=== PATIENT | female | born 1980 | race Caucasian/White ===

== ENCOUNTER 2021-08-15 19:33 | Emergency (ER) | payer SELFPAY ==
[~2021-08-15] VITALS: Ht 167.6 cm; Wt 72.9 kg
[2021-08-15 20:54] LABS: HEMATOCRIT 40.4 % (36.0-47.0); HEMOGLOBIN 13.9 g/dL (12.0-15.5); RED BLOOD COUNT 4.26 x10^6/uL (3.50-5.40); RED CELL DISTRIBUTION WIDTH 12.4 % (11.5-14.5); WHITE BLOOD COUNT 9.5 x10^3/uL (4.0-11.0)
[2021-08-15 21:08] LABS: CALCIUM 8.7 mg/dL (8.5-10.1); CREATININE 0.9 mg/dL (0.6-1.0); POTASSIUM 3.6 mmol/L (3.5-5.1)
[2021-08-15 21:10] LABS: ALBUMIN 4.3 g/dL (3.4-5.0); ALBUMIN/GLOBULIN RATIO 1.1 (1.0-1.7); TOTAL BILIRUBIN 0.4 mg/dL (0.2-1.0); TOTAL PROTEIN 8.1 g/dL (6.4-8.2)
[2021-08-15 21:56] LABS: BACTERIA,URINE MANY /HPF (0-FEW); BILIRUBIN,URINE NEG (NEG); CLARITY,URINE CLEAR; COLOR,URINE YELLOW; GLUCOSE,URINE NEG (NEG); NITRITE,URINE NEG (NEG); SQUAMOUS EPITHELIAL CELL,UR MANY /LPF; UROBILINOGEN,URINE 0.2 mg/dL (0.2 mg/dL)
[2021-08-15 22:08] LABS: U PREG PATIENT NEGATIVE (NEG)
[2021-08-15] MEDS ORDERED: IOHEXOL 240 MG/ML 50ML VIAL. ONE (23:25)
[2021-08-15] MEDS ORDERED: CONTRAST GIVEN. MC PRN (23:30)
[2021-08-15] MEDS ORDERED: IOHEXOL 300 MG/ML 75 ML VIAL. IV ONE (23:45)
[2021-08-15] MEDS ORDERED: KETOROLAC 30 MG/ML VIAL. IVP ONE (23:45)
--- NOTE | 2021-08-15 23:55 | RAD ---
XR ABDOMEN COMP ACUTE History: Reason: RUQ ABDOMINAL PAIN / Spl. Instructions: / History: Technique: Upright and supine views the abdomen. Comparison: None. Findings: No consolidation or pleural effusion. No pneumothorax. Normal heart size. No pneumoperitoneum. Minima l small bowel gas. Air and stool throughout the colon. Lower lumbar spondylosis Impression: 1. Nonobstructed bowel gas pattern. Electronically signed by: Mark Dawn DO (08/15/2021 11:53 PM) [facility]
--- NOTE | 2021-08-16 01:07 | RAD ---
CT ABDOMEN+PELVIS W History: Reason: RUQ ABDOMINAL PAIN Omni 300 75cc / Spl. Instructions: / History: Technique: After the administration of intravenous contrast, CT imaging was performed of the abdomen and pelvis. Multiplanar images are reviewed. Exposure: One or more of the following individualized dose reduction techniques were utilized for thi s examination: 1. Automated exposure control 2. Adjustment of the mA and/or kV according to patient size 3. Use of iterative reconstruction technique. Comparison: None Findings: Lower chest: No consolidation or pleural effusion. Abdomen and pelvis: The liver, spleen, adrenal glands, pancreas and gallbladder are unremarkable. No biliary ductal dilatation. Patent portal vein. No renal calculus. No hydronephrosis. Normal appearanc e of the urinary bladder. Normal appendix. No evidence of bowel obstruction. Oral contrast opacifies to the level of the colon. No pathologic lymphadenopathy. No ascites. Bones: Multilevel lumbar spondylosis most prominent L5-S1. Impression: 1. No acute abdominal or pelvic pathology. Electronically signed by: Mark Dawn DO (08/16/2021 1:04 AM) [facility]
--- NOTE | 2021-08-16 02:05 | PHYS DOC ---
Past History Past Surgical History: Tubal ligation Additional Past Surgical Histo: Bladder Alcohol Use: None General Adult EDM: Chief Complaint: ABDOMINAL PAIN HPI: HPI: :". I ve had this pain for past couple days..," Patient is a 40 year old female who presents with Rt. chest wall and Rt. upper quadrant pain.. Did get COVID vaccination x 2. No flu vaccination.,No hx trauma. No hx prior cardiac. No Hx. gall bladder, + family hx.gallbladder. Pt in.[place] 5# Dyspnea. Review of Systems: Review of Systems: Constitutional: Denies fever or chills Eyes: Denies change in visual acuity HENT: Denies nasal congestion or sore throat Respiratory: dyspnea Cardiovascular: Rt. lower chest wall pain GI: epi gastric abdominal pain, nausea,. Denies vomiting, bloody stools or diarrhea : Denies dysuria Musculoskeletal: Denies back pain or joint pain Integument: Denies rash Neurologic: Denies headache, focal weakness or sensory changes Endocrine: Denies polyuria or polydipsia Lymphatic: Denies swollen glands Psychiatric: Denies depression or anxiety Family History: Family History: Gall bladder Current Medications: Current Meds: Current Medications Medications (Trade) Dose Ordered Sig/Terry Start Time Stop Time Status Last Admin Dose Admin Info (Do NOT chart on this entry -- for MONITORING) 1 each PRN DAILY PRN 08/15/21 23:30 08/17/21 23:29 Iohexol (Omnipaque 240 Mg/ml) 50 ml STK-MED ONCE 08/15/21 23:25 08/15/21 23:26 DC Iohexol (Omnipaque 300 Mg/ml) 75 ml 1X ONCE 08/15/21 23:45 08/15/21 23:46 DC 08/16/21 00:30 75 ML Ketorolac Tromethamine (Toradol 30mg Vial) 30 mg 1X ONCE 08/15/21 23:45 08/15/21 23:46 DC 08/15/21 23:29 30 MG Allergies: Allergies: Allergies Coded Allergies Type Severity Reaction Last Updated Verified No Known Drug Allergies 08/15/21 No Physical Exam: PE: Constitutional: moderate acute distress, non-toxic appearance. [] HENT: Normocephalic, atraumatic, bilateral external ears normal, oropharynx moist, no oral exudates, nose normal. [] Eyes: PERRLA, EOMI, conjunctiva normal, no discharge. [] Neck: Normal range of motion, no tenderness, supple, no stridor. [] Cardiovascular:Heart rate regular rhythm, no murmur [] Lungs & Thorax: Bilateral breath sounds = at apex. few wheezes on auscultation [] Abdomen: Bowel sounds normal, soft, Rt upper quadran tenderness, no masses, no pulsatile masses. [] Skin: Warm, dry, no erythema, no rash. [] Back: No tenderness, no CVA tenderness. [] Extremities: No tenderness, no cyanosis, no clubbing, ROM intact, no edema. [] No cording Neurologic: Alert and oriented X 3, normal motor function, normal sensory function, no focal deficits noted. [] Psychologic: Affect anxious, judgement normal, mood normal. [] Current Patient Data: Labs: Laboratory Tests Test 08/15/21 20:27 08/15/21 20:34 Urine Test Negative (NEG) White Blood Count 9.5 x10^3/uL (4.0-11.0) Red Blood Count 4.26 x10^6/uL (3.50-5.40) Hemoglobin 13.9 g/dL (12.0-15.5) Hematocrit 40.4 % (36.0-47.0) Mean Corpuscular Volume 95 fL (79-100) Mean Corpuscular Hemoglobin 33 pg (25-35) Mean Corpuscular Hemoglobin Concent 34 g/dL (31-37) Red Cell Distribution Width 12.4 % (11.5-14.5) Platelet Count 282 x10^3/uL (140-400) Urine Collection Type Unknown Urine Color Yellow Urine Clarity Clear Urine pH 5.5 Urine Specific [place] >=1.030 Urine Protein Neg (NEG-TRACE) Urine Glucose (UA) Neg mg/dL (NEG) Urine Ketones (Stick) Neg mg/dL (NEG) Urine Blood Neg (NEG) Urine Nitrite Neg (NEG) Urine Bilirubin Neg (NEG) Urine Urobilinogen Dipstick 0.2 mg/dL (0.2 mg/dL) Urine Leukocyte Esterase Neg (NEG) Urine RBC 1-2 /HPF (0-2) Urine WBC 5-10 /HPF (0-4) Urine Squamous Epithelial Cells Many /LPF Urine Transitional Epithelial Cells /LPF Urine Bacteria Many /HPF (0-FEW) Urine Mucus Marked /LPF Sodium Level 133 mmol/L (136-145) L Potassium Level 3.6 mmol/L (3.5-5.1) Chloride Level 97 mmol/L (98-107) L Carbon Dioxide Level 24 mmol/L (21-32) Anion Gap 12 (6-14) Blood Urea Nitrogen 12 mg/dL (7-20) Creatinine 0.9 mg/dL (0.6-1.0) Estimated GFR (Cockcroft-Gault) 69.0 BUN/Creatinine Ratio 13 (6-20) Glucose Level 100 mg/dL (70-99) H Calcium Level 8.7 mg/dL (8.5-10.1) Total Bilirubin 0.4 mg/dL (0.2-1.0) Aspartate Amino Transferase (AST) 19 U/L (15-37) Alanine Aminotransferase (ALT) 24 U/L (14-59) Alkaline Phosphatase 75 U/L (46-116) Total Protein 8.1 g/dL (6.4-8.2) Albumin 4.3 g/dL (3.4-5.0) Albumin/Globulin Ratio 1.1 (1.0-1.7) Amylase Level 44 U/L (25-115) Vital Signs: Vital Signs Date Time Temp Pulse Resp B/P (MAP) Pulse Ox O2 Delivery O2 Flow Rate FiO2 08/15/21 20:39 98.1 72 16 136/92 (107) 98 Room Air EKG: EKG: Lobby EKG=Sinus 74, L. axis , no [id number] Hrs. EKG # 2 = Sinus Panchito 48,no acute 0305 Hrs. [] Radiology/Procedures: Radiology/Procedures: [address] [address] IMAGING REPORT Signed PATIENT: ASHLEY VOGEL ACCOUNT: [id number] : 1980 LOCATION: ER AGE: 40 SEX: F EXAM STATUS: REG ER ORD. PHYSICIAN: LETHA BROWN MD REASON: RUQ ABDOMINAL PAIN Omni 300 75cc PROCEDURE: CT ABD PELV W/ORAL&IV CONTRAST CT ABDOMEN+PELVIS W History: Reason: RUQ ABDOMINAL PAIN Omni 300 75cc / Spl. Instructions: / History: Technique: After the administration of intravenous contrast, CT imaging was performed of the abdomen and pelvis. Multiplanar images are reviewed. Exposure: One or more of the following individualized dose reduction techniques were utilized for this examination: 1. Automated exposure control 2. Adjustment of the mA and/or kV according to patient size 3. Use of iterative reconstruction technique. Comparison: None Findings: Lower chest: No consolidation or pleural effusion. Abdomen and pelvis: The liver, spleen, adrenal glands, pancreas and gallbladder are unremarkable. No biliary ductal dilatation. Patent portal vein. No renal calculus. No hydronephrosis. Normal appearance of the urinary bladder. Normal appendix. No evidence of bowel obstruction. Oral contrast opacifies to the level of the colon. No pathologic lymphadenopathy. No ascites. Bones: Multilevel lumbar spondylosis most prominent L5-S1. Impression: 1. No acute abdominal or pelvic pathology. Electronically signed by: Mark Dawn DO (08/16/2021 1:04 AM) [facility] DICTATED AND SIGNED BY: MARK DAWN DO DATE: 08/16/21 0100 CC: LETHA BROWN MD; EMERGENCY,DEPARTMENT; PCP,NO ~MTH0 0 [][place] [address] IMAGING REPORT Signed PATIENT: ASHLEY VOGEL ACCOUNT: [id number] : 1980 LOCATION: ER AGE: 40 SEX: F EXAM STATUS: REG ER ORD. PHYSICIAN: LETHA BROWN MD REASON: RUQ ABDOMINAL PAIN PROCEDURE: ACUTE ABDOMEN SERIES XR ABDOMEN COMP ACUTE History: Reason: RUQ ABDOMINAL PAIN / Spl. Instructions: / History: Technique: Upright and supine views the abdomen. Comparison: None. Findings: No consolidation or pleural effusion. No pneumothorax. Normal heart size. No pneumoperitoneum. Minimal small bowel gas. Air and stool throughout the colon. Lower lumbar spondylosis Impression: 1. Nonobstructed bowel gas pattern. Electronically signed by: Mark Dawn DO (08/15/2021 11:53 PM) [facility] DICTATED AND SIGNED BY: MARK DAWN DO DATE: 08/15/21 2352 CC: LETHA BROWN MD; EMERGENCY,DEPARTMENT; PCP,NO ~MTH0 0 Heart Score: C/O Chest Pain: Yes HEART Score for Chest Pain: HEART Score for Chest Pain Response (Comments) Value History Slighlty/Non-Suspicious 0 ECG Normal 0 Age < 45 0 Risk Factors 1 or 2 Risk Factors 1 Troponin < Normal Limit 0 Total 1 Risk Factors: Risk Factors: DM, Current or recent (<one month) smoker, HTN, HLP, family history of CAD, obesity. Risk Scores: Score 0 - 3: 2.5% MACE over next 6 weeks - Discharge Home Score 4 - 6: 20.3% MACE over next 6 weeks - Admit for Clinical Observation Score 7 - 10: 72.7% MACE over next 6 weeks - Early Invasive Strategies Course & Med Decision Making: Course & Med Decision Making Pertinent Labs and Imaging studies reviewed. (See chart for details) As per depart instruction, - Pepcid, Gall bladder studies and followup . Return if concern. Must follow up. Impression; 1, Chest Wall Pain 2. Suspect most like Billary Colic/ GERD 3. Na = 133, Cl 97 [] No dictation loss- # [id number] [employer] Disclaimer: [employer] Disclaimer: This electronic medical record was generated, in whole or in part, using a voice recognition dictation system. Departure Departure: Referrals: PCP,NO (PCP) Scripts Famotidine (PEPCID) 20 Mg Tablet 1 TAB PO BID for stef. colic, gastritis, #60 TAB 3 Refills Prov: LETHA BROWN MD 08/16/21 [employer] Disclaimer This chart was dictated in whole or in part using Voice Recognition software in a busy, high-work load, and often noisy Emergency Department environment. It may contain unintended and wholly unrecognized errors or omissions. LETHA BROWN MD Aug 16, 2021 02:05
[2021-08-16] MEDS ORDERED: KETOROLAC 30 MG/ML VIAL. IVP ONE (02:30)
[2021-08-16] MEDS ORDERED: FAMO-63 PO (03:30)
[2021-08-16 04:00] VITALS: BP 130/85
[2021-08-16 07:05] LABS: BGAS PH 7.43 (7.35-7.45)
--- NOTE | 2021-08-17 04:02 | EKG ---
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
--- NOTE | 2021-08-17 08:32 | EKG ---
[address] [address] Test Date: 2021-08-16 Test Time: 03:05:09 Pat Name: ASHLEY VOGEL Department: Room: Gender: F Blow Molding Machine Operator: MARINA : 1980 Requested By: LETHA BROWN Order Number: [id number] Reading MD: Benja Miranda Measurements Intervals [place] Rate: 48 P: 40 VT: 166 QRS: 66 QRSD: 76 T: 33 QT: 470 QTc: 420 Interpretive Statements SINUS BRADYCARDIA Electronically Signed On 08-18-2021 16:24:27 [employer]APH[employer] MECHANIC by Benja Miranda
== END 2021-08-16 04:09 | disposition home or self-care (01) ==
LOC: ER 19:33
DX: R07.89 Other chest pain (principal); R10.11 Right upper quadrant pain; Z98.51 Tubal ligation status
CPT/HCPCS: 36415; 74022; 74177; 80053; 81001; 81025; 82150; 82803; 84484; 85027; 87086; 93005; 96374; 99285; J1885; Q9967